=== PATIENT | female | born 1990 | race African-American/Black ===

== ENCOUNTER 2019-06-27 10:20 | Emergency (ER) | payer OTHER ==
[~2019-06-27] VITALS: Ht 167.6 cm; Wt 68.0 kg
[2019-06-27] MEDS ORDERED: NKM (10:28)
--- NOTE | 2019-06-27 10:36 | NUR ---
ED Nurse Note: PT WALKED IN TO ER TODAY FROM HOME. AXO4. PT C/O LEFT SHOULDER DISLOCATION X LAST NIGHT WHILE ASLEEP. PT STATES THIS HAPPENS OFTEN AND THAT THIS IS PROBABLY THE 7TH OR 8TH TIME THIS HAS OCCURRED. PT DENIES ANY PAIN AT REST BUT STATES PAIN IS EXACERBATED BY MOVEMENT. CIRCULATION AND SENSATION INTACT, CAP REFILL <3 SECONDS AND STRONG FRUIT CANNER AND PULL. PT DENIES ANY NUMBNESS OR TINGLING.
--- NOTE | 2019-06-27 10:36 | NUR ---
Note germanone in EDM - 06/27/19 at 1040 by RUTHIE ED Nurse Note: PT WALKED IN TO ER TODAY FROM HOME. AXO4. PT C/O LEFT SHOULDER DISLOCATION X LAST NIGHT WHILE ASLEEP. PT STATES THIS HAPPENS OFTEN AND THAT THIS IS PROBABLY THE 7TH OR 8TH TIME THIS HAS OCCURRED. PT DENIES ANY PAIN AT REST BUT STATES PAIN IS EXACERBATED BY MOVEMENT. CIRCULATION AND SENSATION INTACT, CAP REFILL <3 SECONDS AND STRONG AIRPORT DRIVER AND PULL.
[2019-06-27 10:38] VITALS: BP 124/86
[2019-06-27] MEDS ORDERED: Ketorolac 30mg Inj IM ONE (10:45)
--- NOTE | 2019-06-27 10:45 | Emergency Room Report ---
History of Present Illness General Chief Complaint: Shoulder Injury Source: Patient Present Illness HPI Disclaimer: Please note that this report is being documented using Vital Access technology. This can lead to erroneous entry secondary to incorrect interpretation by the dictating instrument. HPI: Otherwise healthy 29-year-old female with a history of chronic left shoulder dislocation secondary to rotator cuff injury presents for evaluation of left shoulder pain and likely dislocation. She was sleeping with her arm extended and externally rotated when she felt a sudden pop in her left shoulder and significant pain. States she has dislocated both anteriorly and posteriorly in the past. She is planning on having rotator cuff surgery but has not yet done so. No medications prior to arrival. She denies any loss of sensation, strength distal to the shoulder. PMH: Denies PSH: Denies Allergies: Denies Social Hx: Social alcohol use, denies tobacco or drug use Allergies: Coded Allergies: No Known Allergies (Unverified , 06/27/19) Patient History Last Menstrual Period: 05/31/2019 Nursing Documentation-PMH Past Medical History: No History, Except For Review of Systems All Other Systems: negative except mentioned in HPI Physical Exam Vital Signs Date Time Temp Pulse Resp B/P (MAP) Pulse Ox O2 Delivery O2 Flow Rate FiO2 06/27/19 10:25 98.8 85 16 128/93 (105) 99 Room Air Palpable step-off in the left shoulder. Sensation of the deltoid is intact. Full strength at the elbow, wrist, hand. Dermatomes intact. 2+ radial pulses. Good cap refill. Procedures Joint Reduction Joint Reduction : Joint Reduction Site: shoulder (L) Procedural Sedation: No Reduction Attempts: One Pre-Procedure NV Exam: Yes Post-Procedure NV Exam: Yes Post Joint Reduction Film: joint reduced Patient Tolerated: Well Complications: None Medical Decision Making ER Course 29-year-old female presents for evaluation of left shoulder pain with strong suspicion for dislocation. Will obtain x-ray and give intramuscular Toradol. She may or may not require sedation stating that she has had a reduced both ways in the past. Will determine after imaging. Other X-Ray Diagnostic Results Other X-Ray Diagnostic Results #1: X-Ray ordered: Left shoulder # of Views/Limited Vs Complete: 3 View Indication: Pain EP Interpretation: Yes Interpretation: other - Acute anterior left shoulder dislocation without obvious fracture Electronically Signed by: Electronically signed by Dr. Brant Chapman Other X-Ray Diagnostic Results #2: X-Ray ordered: Left shoulder # of Views/Limited Vs Complete: 1 View Indication: Other - Postreduction Impression: Other - Satisfactory reduction of left shoulder Electronically Signed by: Electronically signed by Dr. Brant Chapman Reevaluation Time: 11:21 Last Vital Signs Date Time Temp Pulse Resp B/P (MAP) Pulse Ox O2 Delivery O2 Flow Rate FiO2 06/27/19 10:38 98.6 82 17 124/86 99 Room Air Reevaluation Impression X-ray shows an anterior shoulder dislocation. Patient was reduced at bedside using 50 mcg of IV fentanyl for pain control. Gentle traction countertraction applied with easy reduction. The patient was placed in a shoulder immobilizer and postreduction films show appropriate reduction. Tolerated the procedure well. Neurovascularly intact at the start and end of the procedure. She will remain in the shoulder immobilizer until she can follow-up with her PMD and schedule evaluation with orthopedic surgery. Will be discharged home on NSAIDs. We discussed reasons to return to the emergency department. She understands and agrees with this treatment plan Disposition: HOME, SELF-CARE Condition: Improved Brant Chapman MD Jun 27, 2019 10:45
--- NOTE | 2019-06-27 10:50 | NUR ---
ED Nurse Note: PT DENIES ANY POSSIBILITY OF . TORADOL IM GIVEN PER MD ORDER.
--- NOTE | 2019-06-27 10:56 | NUR ---
ED Nurse Note: XRAY AT BEDSIDE.
[2019-06-27] MEDS ORDERED: fentaNYL 100 mcg/2 mL IV ONE (11:15)
--- NOTE | 2019-06-27 11:17 | NUR ---
ED Nurse Note: DR VELÁSQUEZ AT BEDSIDE FOR SHOULDER REDUCTION. PT TOLERATED WELL. RADIOLOGY CALLED FOR REPEAT XRAY.
--- NOTE | 2019-06-27 11:26 | NUR ---
ED Nurse Note: PT LAYING PEACEFULLY IN BED IN NAD. AOX4. DISCHARGE PAPERWORK AND ORTHOPEDIC REFERRALS EXPLAINED TO PT. PT VERBALIZES UNDERSTANDING AND ALL QUESTIONS ANSWERED. DISCHARGE PAPERWORK AND REFERRAL GIVEN TO PT, IV AND ID WRISTBAND REMOVED. PT WALKED OUT OF ER WITH STEADY GAIT AND ALL BELONGINGS ACCOMPANIED BY FRIEND WHO WILL BE DRIVING HER HOME.
[2019-06-27 11:27] VITALS: BP 128/84
--- NOTE | 2019-06-27 11:41 | Diagnostic Imaging Report ---
EXAM: XR Left Shoulder Complete, 2 or More Views CLINICAL HISTORY: INJ TECHNIQUE: Two or more views of the left shoulder. COMPARISON: No relevant prior studies available. FINDINGS: Bones/joints: Anterior inferior dislocation of the humerus head relative to the glenoid. The left acromioclavicular joint appears unremarkable. Left clavicle and scapula appear intact. Soft tissues: Unremarkable. IMPRESSION: Anterior inferior dislocation of the humerus head relative to the glenoid.
--- NOTE | 2019-06-27 11:43 | Diagnostic Imaging Report ---
EXAM: XR Left Shoulder, 1 view CLINICAL HISTORY: History of left shoulder dislocation. Post reduction film. TECHNIQUE: Single frontal view of the left shoulder. COMPARISON: Left shoulder x-rays obtained earlier the same date FINDINGS: Bones/joints: Post reduction film demonstrating normal alignment at the glenohumeral joint. Subtle cortical lucencies within the humerus head. Soft tissues: Unremarkable. IMPRESSION: 1. Post reduction film demonstrating normal alignment at the glenohumeral joint. 2. Subtle cortical lucencies within the left humerus head. These are nonspecific and may represent osseous nutrient canals however cannot exclude nondisplaced fracture lucencies.
== END 2019-06-27 11:31 | disposition home or self-care (01) ==
LOC: EMR 10:49
DX: M25.512 Pain in left shoulder (principal); S43.005A Unspecified dislocation of left shoulder joint, initial encounter; X58.XXXA Exposure to other specified factors, initial encounter; Y92.9 Unspecified place or not applicable
CPT/HCPCS: 23650; 73020; 73030; 96372; 96374; 99283; J1885; J3010; Z7502

== ENCOUNTER 2020-05-24 04:45 | Emergency (ER) | payer OTHER ==
[~2020-05-24] VITALS: Ht 170.2 cm; Wt 70.3 kg
[~2020-05-24 04:45] MED LIST: NKM
--- NOTE | 2020-05-24 04:59 | Emergency Room Report ---
History of Present Illness General Chief Complaint: Abdominal Pain Source: Patient (Lloyd Mendiola MD) Present Illness HPI Patient is a 29-year-old female who presents after increased suprapubic abdominal pain. Reports having multiple episodes of vomiting and diarrhea. Think she may have eaten some bad salmon. Denies any fever. Reports having unlikelihood of . Is currently expecting menses. Has not been having any prior history of surgeries or other illnesses. Pain was sharp and nature and intermittent. Reports having waxing and waning pain. As is worse with ambulation. (Lloyd Mendiola MD) Allergies: Coded Allergies: No Known Allergies (Unverified , 06/27/19) Patient History Past Medical History: see triage record Reviewed Nursing Documentation: PMH: Agreed; PSxH: Agreed (Lloyd Mendiola MD) Review of Systems All Other Systems: negative except mentioned in HPI (Lloyd Mendiola MD) Physical Exam Sp02 EP Interpretation: reviewed, normal General Appearance: alert, GCS 15, non-toxic, mild distress Head: atraumatic ENT: normal ENT inspection, hearing grossly normal, normal voice Neck: normal inspection, full range of motion, supple, no bony tend Respiratory: normal inspection, lungs clear, normal breath sounds, no respiratory distress, no retraction, no wheezing Cardiovascular #1: regular rate, rhythm, no edema Gastrointestinal: normal inspection, normal bowel sounds, non tender, soft, no guarding, no hernia Genitourinary: no CVA tenderness Musculoskeletal: normal inspection, back normal, normal range of motion Neurologic: alert, motor strength/tone normal, 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 Differential diagnosis includes not limited to urinary tract infection, ruptured ovarian cyst, ovarian torsion, appendicitis among others. Because of complexity of patient's case laboratory tests and imaging studies were ordered. (Lloyd Mendiola MD) ER Course Hospital Course 29-year-old female presents with abdominal pain vomiting and diarrhea Clinical course Patient initially seen and evaluated by Dr. Mendiola; please see his note for full history and physical Labs - no leukocytosis, electrolytes ok LFTs normal, UA unremarkable US within normal limits CT scan shows some colitis, otherwise no evidence of acute pathology On reassessment patient states she feels better. Discussed findings with patient. Course is viral and self-limited likely. Will prescribe medications for her symptoms. Safe for discharge with close outpatient follow-up I feel this is a highly complex case requiring extensive working including EKG/ Rhythm strip, Xray/CT/US, Blood/urine lab work, repeat exams while in ED, and administration of strong opiates/narcotics for pain control, admission to hospital or close patient follow up. Diagnosis - gastroenteritis Stable and discharged to home with Rx lolis Ocampo pepcid. Followup with PMD. Return to ED if symptoms recur or worsen Labs Test 05/24/20 04:55 05/24/20 06:30 White Blood Count 10.3 K/UL (4.8-10.8) Red Blood Count 4.48 M/UL (4.20-5.40) Hemoglobin 14.0 G/DL (12.0-16.0) Hematocrit 42.1 % (37.0-47.0) Mean Corpuscular Volume 94 FL (80-99) Mean Corpuscular Hemoglobin 31.3 PG (27.0-31.0) Mean Corpuscular Hemoglobin Concent 33.4 G/DL (32.0-36.0) Red Cell Distribution Width 11.2 % (11.6-14.8) Platelet Count 251 K/UL (150-450) Mean Platelet Volume 7.1 FL (6.5-10.1) Neutrophils (%) (Auto) % (45.0-75.0) Lymphocytes (%) (Auto) % (20.0-45.0) Monocytes (%) (Auto) % (1.0-10.0) Eosinophils (%) (Auto) % (0.0-3.0) Basophils (%) (Auto) % (0.0-2.0) Prothrombin Time 11.6 SEC (9.30-11.50) Prothromb Time International Ratio 1.1 (0.9-1.1) Activated Partial Thromboplast Time 19 SEC (23-33) Sodium Level 137 MMOL/L (136-145) Potassium Level 4.2 MMOL/L (3.5-5.1) Chloride Level 101 MMOL/L (98-107) Carbon Dioxide Level 21 MMOL/L (21-32) Anion Gap 15 mmol/L (5-15) Blood Urea Nitrogen 18 mg/dL (7-18) Creatinine 1.0 MG/DL (0.55-1.30) Estimat Glomerular Filtration Rate > 60 mL/min (>60) Glucose Level 162 MG/DL (74-106) Calcium Level 9.2 MG/DL (8.5-10.1) Total Bilirubin 0.6 MG/DL (0.2-1.0) Aspartate Amino Transf (AST/SGOT) 76 U/L (15-37) Alanine Aminotransferase (ALT/SGPT) 27 U/L (12-78) Alkaline Phosphatase 43 U/L (46-116) Total Protein 8.1 G/DL (6.4-8.2) Albumin 4.2 G/DL (3.4-5.0) Globulin 3.9 g/dL Albumin/Globulin Ratio 1.1 (1.0-2.7) Lipase 36 U/L (73-393) Urine Color Pale yellow Urine Appearance Clear Urine pH 5 (4.5-8.0) Urine Specific [place] 1.020 (1.005-1.035) Urine Protein 1+ (NEGATIVE) Urine Glucose (UA) Negative (NEGATIVE) Urine Ketones 4+ (NEGATIVE) Urine Blood 5+ (NEGATIVE) Urine Nitrite Negative (NEGATIVE) Urine Bilirubin Negative (NEGATIVE) Urine Urobilinogen Normal MG/DL (0.0-1.0) Urine Leukocyte Esterase Negative (NEGATIVE) Urine RBC 2-4 /HPF (0 - 2) Urine WBC 0-2 /HPF (0 - 2) Urine Squamous Epithelial Cells Few /LPF (NONE/OCC) Urine Bacteria Few /HPF (NONE) Urine Mucus Few /LPF (NONE/OCC) Urine HCG, Qualitative Negative (NEGATIVE) (Rahul Meyer MD) CT/MRI/US Diagnostic Results CT/MRI/US Diagnostic Results #1: Imaging Test Ordered: CT A/P Impression Procedure: CT Abdomen Pelvis w/Contrast EXAM: CT Abdomen and Pelvis With Intravenous Contrast CLINICAL HISTORY: PAIN Patient is a 29-year-old female who presents after increased suprapubic abdominal pain. Reports having multiple episodes of vomiting and diarrhea. Think she may have eaten some bad salmon. Denies any fever. Reports having unlikelihood of . Is currently expecting menses. Has not been having any prior history of surgeries or other illnesses. Pain was sharp and nature and intermittent. Reports having waxing and waning pain. As is worse with ambulation. TECHNIQUE: Axial computed tomography images of the abdomen and pelvis with intravenous contrast. CTDI is 5.6 mGy and DLP is 278 mGy-cm. One or more of the following dose reduction techniques were used: automated exposure control, adjustment of the mA and/or kV according to patient size, use of iterative reconstruction technique. COMPARISON: No relevant prior studies available. FINDINGS: Lung bases: Unremarkable. No mass. No consolidation. ABDOMEN: Liver: There is a 4 mm well circumscribed hypodensity within the anterior aspect of liver which is too small to characterize but most likely represents a benign cyst or hemangioma. The liver is otherwise unremarkable. Gallbladder and bile ducts: Unremarkable. No calcified stones. No ductal dilation. Pancreas: Unremarkable. No mass. No ductal dilation. Spleen: Unremarkable. No splenomegaly. Adrenals: Unremarkable. No mass. Kidneys and ureters: Unremarkable. No solid mass. No hydronephrosis. Stomach and bowel: There is moderate diffuse wall thickening of the colon. Although this may partially be due to underdistention, the appearance is suggestive of mild colitis. There is no bowel obstruction or abnormal bowel dilatation. PELVIS: Appendix: Normal appendix. Bladder: Unremarkable. No mass. Reproductive: Unremarkable as visualized. ABDOMEN and PELVIS: Intraperitoneal space: Unremarkable. No free air. No significant fluid collection. Bones/joints: No acute fracture. No dislocation. Soft tissues: Unremarkable. Vasculature: Unremarkable. No abdominal aortic aneurysm. Lymph nodes: Unremarkable. No enlarged lymph nodes. IMPRESSION: Mild diffuse colitis. CT/MRI/US Diagnostic Results #2: Imaging Test Ordered: Pelvic US Impression uterus wnl. possible small fundal fibroid trace free fluid in cul-de-sac and at uterine fundus bilateral ovarian follicles seen bilateral ovarian doppler noted (Rahul Meyer MD) Status: improved (Rahul Meyer MD) Disposition: HOME, SELF-CARE Condition: Stable Scripts Dicyclomine Hcl* (DICYCLOMINE HCL*) 10 Mg Capsule 10 MG ORAL QID, #20 CAP Prov: Rahul Meyer MD 05/24/20 Ondansetron Odt* (ZOFRAN ODT*) 4 Mg Tab.rapdis 4 MG BC EVERY 6 HOURS PRN for Nausea & Vomiting, #20 TAB 0 Refills Prov: Rahul Meyer MD 05/24/20 Famotidine* (Pepcid 20mg tablet*) 20 Mg Tablet 20 MG ORAL DAILY, #30 TAB 0 Refills Prov: Rahul Meyer MD 05/24/20 Referrals: MARIELLA URENA,REFERRING (PCP) Lloyd Mendiola MD May 24, 2020 04:59 Rahul Meyer MD May 24, 2020 09:21
[2020-05-24 05:00] VITALS: BP 109/64
[2020-05-24] MEDS ORDERED: Omnipaque-300 100ml vial INJ PRN (05:00)
[2020-05-24] MEDS ORDERED: DiphenhydrAMINE 50mg/ml Inj IVP ONE (05:00)
[2020-05-24] MEDS ORDERED: Morphine Sulfate 4mg/ml Inj (IV USE ONLY) IVP ONE (05:00)
--- NOTE | 2020-05-24 05:00 | NUR ---
Nurse Note: Pt walked in c/o acute onset off lower abd pain with n/v/d. Pt stated pain 10/10, non radiating. Pt stated she was involved with high level activity a week before but has not cause her pain. Pt denies surgires, , etoh and drug use. 20 guage RT AC established, blood sent to lab. All safety measures met; will continue to [facility].
[2020-05-24 05:15] LABS: HEMATOCRIT 42.1 % (37.0-47.0); MEAN CORPUSCULAR VOLUME 94 FL (80-99); PLATELET COUNT 251 K/UL (150-450); RED BLOOD COUNT 4.48 M/UL (4.20-5.40); RED CELL DISTRIBUTION WIDTH 11.2 % (11.6-14.8); WHITE BLOOD COUNT 10.3 K/UL (4.8-10.8)
[2020-05-24 05:36] LABS: INR 1.1 (0.9-1.1)
[2020-05-24 05:43] LABS: ANION GAP 15 mmol/L (5-15); BLOOD UREA NITROGEN 18 mg/dL (7-18); CALCIUM 9.2 MG/DL (8.5-10.1); CARBON DIOXIDE 21 MMOL/L (21-32); CHLORIDE 101 MMOL/L (98-107); POTASSIUM 4.2 MMOL/L (3.5-5.1); SODIUM 137 MMOL/L (136-145)
[2020-05-24 05:51] LABS: ALANINE AMINOTRANSFERASE 27 U/L (12-78); ALBUMIN 4.2 G/DL (3.4-5.0); ALBUMIN/GLOBULIN RATIO 1.1 (1.0-2.7); ALKALINE PHOSPHATASE 43 U/L (46-116); ASPARTATE AMINO TRANSFERASE 76 U/L (15-37); BILIRUBIN,TOTAL 0.6 MG/DL (0.2-1.0)
[2020-05-24 06:16] VITALS: BP 115/82
--- NOTE | 2020-05-24 06:41 | NUR ---
Nurse Note: Pt signed consent for CT abd with contrast and signed form to waive urine for CT. Pt stated 3/10 pain. Pt ambulating with steady gait, urine collected and sent. Pt denies n/v. Awaiting CT results. SLIV RT AC; patent. All safety measures met; will continue to [facility].
[2020-05-24 06:49] LABS: APPEARANCE,URINE CLEAR; BILIRUBIN, URINE NEGATIVE (NEGATIVE); COLOR,URINE PALE YELLOW; GLUCOSE, URINE (UA) NEGATIVE (NEGATIVE); KETONES,URINE 4+ (NEGATIVE); LEUKOCYTE ESTERASE ,URINE NEGATIVE (NEGATIVE); NITRITE,URINE NEGATIVE (NEGATIVE); PH,URINE 5 (4.5-8.0); PROTEIN,URINE 1+ (NEGATIVE); UROBILINOGEN,URINE NORMAL MG/DL (0.0-1.0)
--- NOTE | 2020-05-24 07:10 | Diagnostic Imaging Report ---
EXAM: CT Abdomen and Pelvis With Intravenous Contrast CLINICAL HISTORY: PAIN Patient is a 29-year-old female who presents after increased suprapubic abdominal pain. Reports having multiple episodes of vomiting and diarrhea. Think she may have eaten some bad salmon. Denies any fever. Reports having unlikelihood of . Is currently expecting menses. Has not been having any prior history of surgeries or other illnesses. Pain was sharp and nature and intermittent. Reports having waxing and waning pain. As is worse with ambulation. TECHNIQUE: Axial computed tomography images of the abdomen and pelvis with intravenous contrast. CTDI is 5.6 mGy and DLP is 278 mGy-cm. One or more of the following dose reduction techniques were used: automated exposure control, adjustment of the mA and/or kV according to patient size, use of iterative reconstruction technique. COMPARISON: No relevant prior studies available. FINDINGS: Lung bases: Unremarkable. No mass. No consolidation. ABDOMEN: Liver: There is a 4 mm well circumscribed hypodensity within the anterior aspect of liver which is too small to characterize but most likely represents a benign cyst or hemangioma. The liver is otherwise unremarkable. Gallbladder and bile ducts: Unremarkable. No calcified stones. No ductal dilation. Pancreas: Unremarkable. No mass. No ductal dilation. Spleen: Unremarkable. No splenomegaly. Adrenals: Unremarkable. No mass. Kidneys and ureters: Unremarkable. No solid mass. No hydronephrosis. Stomach and bowel: There is moderate diffuse wall thickening of the colon. Although this may partially be due to underdistention, the appearance is suggestive of mild colitis. There is no bowel obstruction or abnormal bowel dilatation. PELVIS: Appendix: Normal appendix. Bladder: Unremarkable. No mass. Reproductive: Unremarkable as visualized. ABDOMEN and PELVIS: Intraperitoneal space: Unremarkable. No free air. No significant fluid collection. Bones/joints: No acute fracture. No dislocation. Soft tissues: Unremarkable. Vasculature: Unremarkable. No abdominal aortic aneurysm. Lymph nodes: Unremarkable. No enlarged lymph nodes. IMPRESSION: Mild diffuse colitis.
--- NOTE | 2020-05-24 07:10 | NUR ---
Nurse Note: Report given to JOSSELIN Dunn for continuity of care. US contacted.
--- NOTE | 2020-05-24 07:15 | NUR ---
ED Nurse Note: Received pt from JOSSELIN Reyes. pt sleeping in bed without s/s of distress.
[2020-05-24] MEDS ORDERED: FAMOTIDINE20 MG ORAL (08:02)
[2020-05-24] MEDS ORDERED: ONDANSETRON ODT4 MG BC (08:02)
[2020-05-24] MEDS ORDERED: DICYCLOMINE HCL10 MG ORAL (08:02)
[2020-05-24 08:09] VITALS: BP 121/86
--- NOTE | 2020-05-24 08:11 | NUR ---
ED Nurse Note: Pt cleared by health care Provider for discharge. DC instructions/prescription was given and explained to pt and verbalized understanding of teachings. All medical deviecs such as ID band removed. Pt is AAO x4, ambulatory and left with all personal belongings.
--- NOTE | 2020-05-24 11:42 | Diagnostic Imaging Report ---
Indication: Abdominal pain, negative test Technique: Transabdominal and transvaginal images of the pelvis. Doppler interrogation of the bilateral ovaries. Comparison: None. Reference made to CT scan of a few hours earlier Findings: Uterus measures 8.2 cm length by 4.3 cm AP. The endometrium measures 14 mm thick. Tiny 1 cm fibroid is seen in the upper fundus. There is trace free cul-de-sac fluid. The ovaries are normal in size. They demonstrate normal flow on Doppler Impression: Essentially unremarkable exam Tiny fundal fibroid incidentally noted Normal ovaries Trace free cul-de-sac fluid, presumably physiologic
== END 2020-05-24 08:11 | disposition home or self-care (01) ==
LOC: EMR 04:55
DX: K52.9 Noninfective gastroenteritis and colitis, unspecified (principal)
CPT/HCPCS: 36415; 74177; 76830; 76856; 80053; 81003; 81025; 83690; 85025; 85610; 85730; 96361; 96374; 96375; J1200; J2270; J2405; J7030; Q9967; Z7502; 99284